=== PATIENT | female | born 1975 | race African-American/Black ===

== ENCOUNTER 2022-12-09 16:25 | Emergency (ER) | payer BC ==
[2022-12-09] MEDS ORDERED: Dexamethasone 10 MG/ML VIAL ONE (17:03)
[2022-12-09] MEDS ORDERED: Acetaminophen 500 MG TAB ONE (17:03)
[2022-12-09] MEDS ORDERED: Lidocaine Viscous Sol 2% 15 ml UD Cup ONE (17:03)
[2022-12-09] MEDS ORDERED: Ipratropium/Albuterol 3 ML NEB ONE (17:53)
== END 2022-12-09 18:29 | disposition home or self-care (01) ==
LOC: MADERS 16:25
DX: U07.1 COVID-19 (principal); J06.9 Acute upper respiratory infection, unspecified; I10 Essential (primary) hypertension
CPT/HCPCS: 71046; 87081; 87430; 87804; 96372; J1100; J7620; U0003; U0005